=== PATIENT | female | born 1985 | race Caucasian/White ===

== ENCOUNTER 2022-06-11 08:04 | Emergency (ER) | payer MEDICAID ==
[~2022-06-11] VITALS: Ht 160 cm; Wt 66.8 kg
[~2022-06-11 08:04] MED LIST: FISH OIL1 IU PO; KLONOPIN 1MG1 MG PO; TOPAMAX25 MG PO
[2022-06-11 09:42] LABS: BASO # 0.02 K/mm3 (0.02-0.10); EOS # 0.12 K/mm3 (0.04-0.40); EOS % 2.2 % (1.0-5.0); HEMATOCRIT 45.3 % (37.0-47.0); HEMOGLOBIN 15.4 g/dL (12.5-16.0); LYMPH# 1.55 K/mm3 (1.50-4.00); MEAN CELL VOLUME 89 fl (78-100); MEAN CORPUSCULAR HEMOGLOBIN 30 pg (27-31); MEAN CORPUSCULAR HGB CONC 34 g/dL (33-37); MEAN PLATELET VOLUME 9.6 fl (7.4-10.4); MONO # 0.39 K/mm3 (0.20-0.80); NEU # 3.39 K/mm3 (1.40-6.50); PLATELET COUNT 265 K/mm3 (130-400); RED BLOOD COUNT 5.07 M/mm3 (4.10-5.30); RED CELL DISTRIBUTION WIDTH 11.8 % (11.5-14.5); WHITE BLOOD COUNT 5.5 K/mm3 (4.8-10.8)
[2022-06-11 09:56] LABS: ALBUMIN 4.2 g/dL (3.5-5.0)
[2022-06-11 09:57] LABS: POTASSIUM 4.4 mmol/L (3.5-5.1)
[2022-06-11 09:58] LABS: CALCIUM 9.1 mg/dL (8.3-10.5)
[2022-06-11 09:59] LABS: TOTAL PROTEIN 6.9 g/dL (6.4-8.3)
[2022-06-11 10:01] LABS: TOTAL BILIRUBIN 1.5 mg/dL (0.2-1.2)
[2022-06-11 10:19] LABS: URINE WBC 0 /hpf (0-3)
[2022-06-11 10:39] LABS: STREP SCREEN NEGATIVE (NEGATIVE)
[2022-06-11 10:47] LABS: URINE APPEARANCE CLEAR; URINE BILIRUBIN NEGATIVE (NEGATIVE); URINE BLOOD NEGATIVE (NEGATIVE); URINE COLOR YELLOW; URINE GLUCOSE NEGATIVE (NEGATIVE); URINE KETONE NEGATIVE (NEGATIVE); URINE LEUKOCYTE ESTERASE NEGATIVE (NEGATIVE); URINE MUCUS PRESENT (NOT PRESENT); URINE NITRATE NEGATIVE (NEGATIVE); URINE PROTEIN(semi-quant) TRACE (NEGATIVE); URINE UROBILINOGEN NORMAL (NORMAL)
[2022-06-11 10:47] LABS: CLUE CELLS NOT OBSERVED (Not Observd)
[2022-06-11 11:24] VITALS: BP 104/72
== END 2022-06-11 11:25 | disposition home or self-care (01) ==
LOC: ED 08:04
PROVIDERS: Nurse Practitioner
DX: J98.8 Other specified respiratory disorders (principal); R74.8 Abnormal levels of other serum enzymes; N89.8 Other specified noninflammatory disorders of vagina; Z90.710 Acquired absence of both cervix and uterus; Z20.822 Contact with and (suspected) exposure to COVID-19; Z28.310 Unvaccinated for COVID-19
CPT/HCPCS: Q0111

== ENCOUNTER 2022-06-30 16:40 | Emergency (ER) | payer MEDICAID ==
[2022-06-30] MEDS ORDERED: AMOXICILLIN 50500 MG PO (18:08)
[2022-06-30] MEDS ORDERED: LIDOCAINE HC20 MG/M1 MM (18:08)
[2022-06-30 18:52] VITALS: BP 108/83
== END 2022-06-30 18:35 | disposition home or self-care (01) ==
LOC: ED 16:40
DX: J02.0 Streptococcal pharyngitis (principal); Z88.1 Allergy status to other antibiotic agents; Z88.2 Allergy status to sulfonamides; Z88.4 Allergy status to anesthetic agent; Z28.310 Unvaccinated for COVID-19

== ENCOUNTER → 2022-07-27 | Outpatient (CLI) | payer MEDICAID ==
[~2022-07-27] MED LIST changes: +AMOXICILLIN 50500 MG PO; +LIDOCAINE HC20 MG/M1 MM
== END ==
LOC: RAD 08:36
DX: R90.82 White matter disease, unspecified (principal); M62.81 Muscle weakness (generalized)

== ENCOUNTER → 2022-12-02 | Outpatient (CLI) | payer MEDICAID ==
[~2022-12-02] MED LIST changes: +ORPHENADRINE C100 MG PO
== END ==
LOC: RAD 18:47
DX: M62.81 Muscle weakness (generalized) (principal); M25.50 Pain in unspecified joint; R20.2 Paresthesia of skin; R90.89 Other abnormal findings on diagnostic imaging of central nervous system
CPT/HCPCS: A9575